=== PATIENT | female | born 1995 | race Two or more races ===

== ENCOUNTER 2018-03-16 22:37 | Emergency (ER) | payer SELFPAY ==
[~2018-03-16] VITALS: Ht 167.6 cm; Wt 56.7 kg
[2018-03-16 22:37] VITALS: BP 130/96
--- NOTE | 2018-03-16 22:37 | NUR ---
ED Nurse Note: Patient ingested unknown amount of meth, unknown route and time. pt was brought in by [facility]. per keven, tahir on the scene. pt is uncoopertive. wont allow staff to take vital signs. pt is talking to herself. per keven pt denies si. will continue to monitor.
--- NOTE | 2018-03-16 22:56 | Emergency Room Report ---
History of Present Illness General Chief Complaint: Overdose Source: Patient, EMS Present Illness HPI Is a 22-year-old female with no past medical history. She called 911 because she said she was not feeling well and someone is out to get her. She smoked methamphetamine today. Denies any fever chills. Denies suicidal thoughts homicidal thought. No nausea no vomiting. No fever or chills. Allergies: Coded Allergies: No Known Allergies (Unverified , 03/16/18) Patient History Past Medical History: see triage record, old chart reviewed Past Surgical History: none Pertinent Family History: none Social History: Reports: drug use - Methamphetamine Last Menstrual Period: unk Now: No Immunizations: other Reviewed Nursing Documentation: PMH: Agreed; PSxH: Agreed Nursing Documentation-PMH Past Medical History Deferred: Pt Cognitively Impaired Past Medical History: Deferred Review of Systems Eye: Denies: eye pain, blurred vision ENT: Denies: ear pain, nose congestion, throat swelling Respiratory: Denies: cough, shortness of breath Cardiovascular: Denies: chest pain, palpitations Gastrointestinal: Denies: abdominal pain, diarrhea, nausea, vomiting Musculoskeletal: Denies: back pain, joint pain Skin: Denies: rash Neurological: Denies: headache, numbness Endocrine: Denies: increased thirst, increased urine Hematologic/Lymphatic: Denies: easy bruising All Other Systems: negative except mentioned in HPI Physical Exam Vital Signs Date Time Temp Pulse Resp B/P (MAP) Pulse Ox O2 Delivery O2 Flow Rate FiO2 03/16/18 22:28 110 16 130/96 100 Room Air vitals with tachycardia Sp02 EP Interpretation: reviewed, normal General Appearance: well appearing, no apparent distress, alert Head: normocephalic, atraumatic Eyes: bilateral eye PERRL, bilateral eye EOMI ENT: hearing grossly normal, normal pharynx Neck: full range of motion, supple, no meningismus Respiratory: chest non-tender, lungs clear, normal breath sounds Cardiovascular #1: regular rate, rhythm, no murmur Gastrointestinal: normal bowel sounds, non tender, no mass, no organomegaly, no bruit, non-distended Musculoskeletal: back normal, gait/station normal, normal range of motion Psychiatric: mood/affect normal Skin: warm/dry Medical Decision Making Homeless Attestation I, The treating physician, Dr Jeremiah Kc, has assessed and agrees that patient is medically stable for discharge to an outpatient disposition. Diagnostic Impression: Primary Impression: Psychosis Qualified Codes: F23 - Brief psychotic disorder Additional Impression: Methamphetamine abuse ER Course Patient presents with drug-induced psychosis. No suicidal thoughts or homicidal thought. No auditory hallucination. We'll observe patient until better. No criteria for 5150. This patient is a chronic risk of self injury due to poor impulse control, limited coping skills, and judgment intermittently impaired by intoxication. I believe that the available clinical evidence to suggest that these characteristics derived primarily from personality disorder and are likely very stable over time. Hospitalization would likely attenuate risk of self-harm only during jail period, without lasting risk reduction. Serious self-harm , while possible, would likely be inadvertent, and because of impulsivity, and foreseeable. For these reasons, I do not believe hospitalization would provide meaningful reduction in risk of self-harm. Last Vital Signs Date Time Temp Pulse Resp B/P (MAP) Pulse Ox O2 Delivery O2 Flow Rate FiO2 03/16/18 22:37 68 16 130/96 100 Room Air Status: improved Disposition: HOME, SELF-CARE Condition: Stable Additional Instructions: Stop using drugs. Follow-up with rehabilitation in 7 days. Return if worse. Jeremiah Kc MD Mar 16, 2018 22:56
[2018-03-17] VITALS: BP 115/75
--- NOTE | 2018-03-17 | NUR ---
ED Nurse Note: Patient is being discharged cleared by ERMD. discharge paper/instruction given to the patient, patient verbalized understanding. patient a/o x4, ambulated out of Ed with steady gait, with all belongings. ID band removed. pt asked sandwich and food was given.
== END 2018-03-17 | disposition home or self-care (01) ==
LOC: EDBD 22:37 → EMR 23:14
DX: F15.159 Other stimulant abuse with stimulant-induced psychotic disorder, unspecified (principal)
CPT/HCPCS: 99282

== ENCOUNTER 2018-05-16 12:55 | Emergency (ER) | payer OTHER ==
[2018-05-16] VITALS (11 sets, daily range): BP systolic 100–121; BP diastolic 59–84
[~2018-05-16] VITALS: Ht 157.5 cm; Wt 56.7 kg
[2018-05-16] MEDS ORDERED: LORazepam Inj 2mg/ml 1ml ONE (13:05)
--- NOTE | 2018-05-16 13:06 | NUR ---
ED Nurse Note: AMBULATED IN TO ER. PER BF, HE CALLED 911 FOR HELP BECAUSE SHE WAS RUNNING AROUND THE STREET. PER TRIAGE NURSE, PT WAS DROPPED OFF BY THE POLICE OFFICERS WITHOUT ENDORSEMENTS. PT ADMITS THAT SHE TOOK COCAINE, CRAK AND METH ABOUT AN HOUR AGO. HEALING SCARS OF CUT NOTED ON THE LEFT ARMS. NO RECENT TRAUMA NOR CUTS. A/OX3, PT IS EXCESSIVELY HAPPY BUT COMBATIVE TO THE STAFFS.
--- NOTE | 2018-05-16 13:10 | NUR ---
ED Nurse Note: ALL BELONGINGS TAKEN OFF FROM PT, STORED IN PSYCH LOCKER #2 WITH BELONGING LIST.
--- NOTE | 2018-05-16 13:15 | NUR ---
ED Nurse Note: VERBAL ORDERL OF LABS WITH ATIVAN 2MG IM RECEIVED.ATIVAN 2MG IM GIVEN ON THE LEFT DELTOID, WITNESSED BY DEJA MITTAL. NO S/S OF TRAUMA.
--- NOTE | 2018-05-16 13:15 | NUR ---
ED Nurse Note: PT IS COMBATIVE AND SCREAMING. RECEIVED VERBAL ORDER TO PLACE ON 4 POINT LEATHER RESTRAINTS. RESTRAINTS APPLIED. NO TRAUMA. CIRCULATION CHECKED.
[2018-05-16] MEDS ORDERED: DiphenhydrAMINE 50mg/ml Inj ONE (13:30)
[2018-05-16] MEDS ORDERED: Haloperidol 5mg/ml Inj ONE (13:30)
--- NOTE | 2018-05-16 13:36 | NUR ---
ED Nurse Note: received order to give Haldol 5mg IM and Benadryl 50mg IM. Administered Haldol 5mg IM right Vastus lateralis muscleand Benadryl 50mg IM left Vastus lateralis muscle, witnessed by DEJA Breaux.
--- NOTE | 2018-05-16 13:52 | Emergency Room Report ---
History of Present Illness General Chief Complaint: Behavioral Complaint Source: Patient, Medical Record (Odilon Osborn MD) Present Illness HPI Patient is a 22-year-old female brought in by boyfriend after increased agitation. Patient reportedly had been recently discharged from a psychiatric facility. She had prior history of bipolar disorder. Medications are unknown. Patient reportedly had been more agitated after leaving from the area where her boyfriend was for approximately 1/2-hour and subsequently becoming more agitated. Patient was noted to have prior history of bipolar but would not state what medication she takes. She was noted to be behaving bizarrely. She apparently had been walking into traffic. (Odilon Osborn MD) Allergies: Coded Allergies: No Known Allergies (Unverified , 03/16/18) Patient History Past Medical History: see triage record Reviewed Nursing Documentation: PMH: Agreed; PSxH: Agreed (Odilon Osborn MD) Nursing Documentation-PMH Past Medical History: No Stated History (Odilon Osborn MD) Review of Systems All Other Systems: negative except mentioned in HPI (Odilon Osborn MD) Physical Exam Vital Signs Date Time Temp Pulse Resp B/P (MAP) Pulse Ox O2 Delivery O2 Flow Rate FiO2 05/16/18 13:00 98.4 108 22 111/84 98 Room Air Sp02 EP Interpretation: reviewed, normal General Appearance: alert/responsive, no apparent distress, GCS 15, non-toxic Head: atraumatic Eyes: normal eye exam, lids + conjunctiva normal, other - pupils dilated 5mm ENT: hearing intact, no angioedema Neck: supple/symm/no masses, no meningismus Respiratory: effort normal, no wheezing, chest symmetrical Cardiovascular: regular rate, rhythm, no edema Cardiovascular #2: 2+ carotid (R), 2+ carotid (L), 2+ dorsalis pedis (R), 2+ dorsalis pedis (L) Gastrointestinal: non-tender, no mass, non-distended, no rebound/guarding, normal bowel sounds Musculoskeletal: gait & station normal, strength & tone normal, normal ROM, non -tender Neurologic: normal inspection, CN II-XII intact, oriented x3, sensory intact, normal speech Psychiatric: other - agitated ambulatory, intermittently yelliing Skin: no rash, well hydrated Lymphatic: normal inspection (Odilon Osborn MD) Medical Decision Making Diagnostic Impression: Primary Impression: Bipolar disorder Additional Impression: Substance abuse ER Course Patient presented for agitation. Differential diagnoses include substance abuse , psychosis, bipolar disorder, depression, malingering. because of complexity of patient's case laboratory testing and imaging studies were ordered.. Patient was noted to be markedly agitated while in the emergency department. She pulled the fire alarm as well as was yelling and screaming. She was noted to have dilated pupils and appears to be somewhat intoxicated with some stimulants. Patient was given IM Ativan as well as Haldol and Benadryl. She was placed in restraints due to agitation. Patient was endorsed to Dr. Gonzalez pending reassessment after medications. (Odilon Osborn MD) ER Course This patient originally presented to Dr. Osborn. I took over care of this patient. She had used multiple illicit drugs and had been acting dangerously and bizarrely and was very agitated and aggressive per report. She had been medicated heavily prior to my care for her. The patient slept during her ED course. This patient presented with drug intoxication. The patient's laboratory workup was noncontributory other than urine drug screen being positive for multiple illicit substances and transaminitis. There is no evidence of trauma or injury on physical examination of this patient. The patient was allowed to sober up in the emergency department and was able to ambulate and articulate desire to go home. The patient was clinically sober at the time of discharge. No acute emergency medical condition is identified. The patient was educated on the dangers of alcohol intoxication and abuse. The patient was given a list of the local rehabilitation clinics. Laboratory Tests Test 05/16/18 14:00 White Blood Count 8.1 K/UL (4.8-10.8) Red Blood Count 4.06 M/UL (4.20-5.40) L Hemoglobin 12.3 G/DL (12.0-16.0) Hematocrit 36.5 % (37.0-47.0) L Mean Corpuscular Volume 90 FL (80-99) Mean Corpuscular Hemoglobin 30.3 PG (27.0-31.0) Mean Corpuscular Hemoglobin Concent 33.7 G/DL (32.0-36.0) Red Cell Distribution Width 12.2 % (11.6-14.8) Platelet Count 303 K/UL (150-450) Mean Platelet Volume 5.7 FL (6.5-10.1) L Neutrophils (%) (Auto) 63.5 % (45.0-75.0) Lymphocytes (%) (Auto) 26.3 % (20.0-45.0) Monocytes (%) (Auto) 7.7 % (1.0-10.0) Eosinophils (%) (Auto) 1.2 % (0.0-3.0) Basophils (%) (Auto) 1.3 % (0.0-2.0) Urine Color Pale yellow Urine Appearance Clear Urine pH 5 (4.5-8.0) Urine Specific Rhodes 1.020 (1.005-1.035) Urine Protein 1+ (NEGATIVE) H Urine Glucose (UA) Negative (NEGATIVE) Urine Ketones Negative (NEGATIVE) Urine Blood 1+ (NEGATIVE) H Urine Nitrite Negative (NEGATIVE) Urine Bilirubin Negative (NEGATIVE) Urine Urobilinogen Normal MG/DL (0.0-1.0) Urine Leukocyte Esterase 2+ (NEGATIVE) H Urine RBC 0-2 /HPF (0 - 2) Urine WBC 2-4 /HPF (0 - 2) Urine Squamous Epithelial Cells Occasional /LPF Urine Bacteria Occasional /HPF (NONE) Urine HCG, Qualitative Negative (NEGATIVE) Sodium Level 141 MMOL/L (136-145) Potassium Level 4.0 MMOL/L (3.5-5.1) Chloride Level 104 MMOL/L (98-107) Carbon Dioxide Level 25 MMOL/L (21-32) Anion Gap 12 mmol/L (5-15) Blood Urea Nitrogen 18 mg/dL (7-18) Creatinine 0.7 MG/DL (0.55-1.30) Estimate Glomerular Filtration Rate > 60 mL/min (>60) Glucose Level 86 MG/DL (74-106) Calcium Level 9.0 MG/DL (8.5-10.1) Total Bilirubin 0.3 MG/DL (0.2-1.0) Aspartate Amino Transferase (AST) 65 U/L (15-37) H Alanine Aminotransferase (ALT) 154 U/L (12-78) H Alkaline Phosphatase 101 U/L (46-116) Troponin I 0.000 ng/mL (0.000-0.056) Total Protein 7.8 G/DL (6.4-8.2) Albumin 4.2 G/DL (3.4-5.0) Globulin 3.6 g/dL Albumin/Globulin Ratio 1.2 (1.0-2.7) Thyroid Stimulating Hormone (TSH) 2.492 uiU/mL (0.358-3.740) Salicylates Level 2.5 ug/mL (2.8-20) L Urine Opiates Screen Negative (NEGATIVE) Acetaminophen Level < 2 MCG/ML (10-30) L Urine Barbiturates Screen Negative (NEGATIVE) Phencyclidine (PCP) Screen Negative (NEGATIVE) Urine Amphetamines Screen Positive (NEGATIVE) H Urine Benzodiazepines Screen Negative (NEGATIVE) Urine Cocaine Screen Positive (NEGATIVE) H Urine Marijuana (THC) Screen Positive (NEGATIVE) H Serum Alcohol < 3 mg/dL (Breana Oleary DO) Last Vital Signs Date Time Temp Pulse Resp B/P (MAP) Pulse Ox O2 Delivery O2 Flow Rate FiO2 05/16/18 13:08 108 22 Room Air 05/16/18 13:06 98.4 111/84 95 (Odilon Osborn MD) Status: improved (Breana Oleary DO) Disposition: HOME, SELF-CARE Condition: Improved dOilon Osborn MD May 16, 2018 13:52 Breana Oleary DO May 16, 2018 21:59
[2018-05-16] MEDS ORDERED: LORazepam Inj 2mg/ml 1ml IM ONE (14:00)
[2018-05-16] MEDS ORDERED: Haloperidol 5mg/ml Inj IM ONE (14:00)
[2018-05-16] MEDS ORDERED: DiphenhydrAMINE 50mg/ml Inj IM ONE (14:00)
--- NOTE | 2018-05-16 14:03 | NUR ---
ED Nurse Note: BLOOD SPECIMENS AND URINE SENT DOWN TO THE LAB.
[2018-05-16 14:19] LABS: APPEARANCE,URINE CLEAR; BASOPHILS % (AUTO) 1.3 % (0.0-2.0); BILIRUBIN, URINE NEGATIVE (NEGATIVE); COLOR,URINE PALE YELLOW; EOSINOPHILS % (AUTO) 1.2 % (0.0-3.0); GLUCOSE, URINE (UA) NEGATIVE (NEGATIVE); HEMATOCRIT 36.5 % (37.0-47.0); HEMOGLOBIN 12.3 G/DL (12.0-16.0); KETONES,URINE NEGATIVE (NEGATIVE); LEUKOCYTE ESTERASE ,URINE 2+ (NEGATIVE); LYMPHOCYTES % (AUTO) 26.3 % (20.0-45.0); MEAN CORPUSCULAR VOLUME 90 FL (80-99); MONOCYTES % (AUTO) 7.7 % (1.0-10.0); NEUTROPHILS % (AUTO) 63.5 % (45.0-75.0); NITRITE,URINE NEGATIVE (NEGATIVE); PH,URINE 5 (4.5-8.0); PLATELET COUNT 303 K/UL (150-450); PROTEIN,URINE 1+ (NEGATIVE); RED BLOOD COUNT 4.06 M/UL (4.20-5.40); RED CELL DISTRIBUTION WIDTH 12.2 % (11.6-14.8); UROBILINOGEN,URINE NORMAL MG/DL (0.0-1.0); WHITE BLOOD COUNT 8.1 K/UL (4.8-10.8)
--- NOTE | 2018-05-16 14:30 | NUR ---
ED Nurse Note: pt sleeping with even and regular resp. pt with restraints removed and remains under close observation.
[2018-05-16 14:32] LABS: ANION GAP 12 mmol/L (5-15); BLOOD UREA NITROGEN 18 mg/dL (7-18); CARBON DIOXIDE 25 MMOL/L (21-32); CHLORIDE 104 MMOL/L (98-107); CREATININE 0.7 MG/DL (0.55-1.30); SODIUM 141 MMOL/L (136-145)
[2018-05-16 14:44] LABS: ALANINE AMINOTRANSFERASE 154 U/L (12-78); ALBUMIN 4.2 G/DL (3.4-5.0); ALBUMIN/GLOBULIN RATIO 1.2 (1.0-2.7); ALKALINE PHOSPHATASE 101 U/L (46-116); ASPARTATE AMINO TRANSFERASE 65 U/L (15-37); BILIRUBIN,TOTAL 0.3 MG/DL (0.2-1.0)
--- NOTE | 2018-05-16 15:01 | NUR ---
ED Nurse Note: pt remains stable and currently sleeping. no s/s of trauma.
--- NOTE | 2018-05-16 16:15 | NUR ---
Patients boyfriend Benja Grady can be contacted at [phone] Patients friend Tam Miguel A can be contacted at [phone]
--- NOTE | 2018-05-16 17:25 | NUR ---
ED Nurse Note: pT IS NOW A/OX4. DENIES SI AND HI. SANDWICH AND JUICE GIVEN
--- NOTE | 2018-05-16 18:33 | NUR ---
ED Nurse Note: PT IS SLEEPING IN GURNEY. NO S/S OF DISTRESS.
--- NOTE | 2018-05-16 18:59 | NUR ---
HAND-OFF: Report given to DEJA Stevens. Pt now moved to room Ortho. No s/s of distress. Pt is a/ox4 at this time, calm. Denies SI and HI.
--- NOTE | 2018-05-16 19:00 | NUR ---
ED Nurse Note: Received report from Serge/RN in Room Ortho. Pt is sleeping quietly at this time, Vital signs stable, no c/o pain or discomfort at this time. Will continue to monitor.
--- NOTE | 2018-05-16 19:35 | NUR ---
ED Nurse Note: No restrain was noted at this time. Pt is resting well.
--- NOTE | 2018-05-16 21:05 | NUR ---
ED Nurse Note: Assited pt walked to Bathroom. Pt is A/O X4, able to ambulated with steady gait. Informed Dr. Oleary that pt is able to walk steadly. Assited pt walked back to her bed. Waiting for discharge paper to be ready.
--- NOTE | 2018-05-16 22:05 | NUR ---
ER DISCHARGE NOTE: Patient is cleared to be discharged per ERMD, pt is aox4, on room air, with stable vital signs. pt was given dc and prescription instructions, pt was able to verbalize understanding, pt id band and iv site removed without complications. pt is able to ambulate with steady gait. At time of discharge, patient's clothing was already on patient. the clothes were appropriate for patient. belongings were taken from locker #2.
== END 2018-05-16 22:00 | disposition home or self-care (01) ==
LOC: EMR 13:30
DX: F31.9 Bipolar disorder, unspecified (principal); F19.10 Other psychoactive substance abuse, uncomplicated
CPT/HCPCS: 36415; 80053; 80307; 80329; 81003; 81025; 84443; 84484; 85025; 96372; 99284; J1200; J1630

== ENCOUNTER 2018-11-27 04:18 | Emergency (ER) | payer OTHER ==
[~2018-11-27] VITALS: Ht 157.5 cm; Wt 61.2 kg
[~2018-11-27 04:18] MED LIST: NITROFURANTOIN100 M2 ORAL
[2018-11-27 04:23] VITALS: BP 130/66
[2018-11-27] MEDS ORDERED: NKM (04:28)
--- NOTE | 2018-11-27 04:30 | NUR ---
ED Nurse Note: Recieved pt on sumanth, awake, alert and oriented x 4, pt here with c/o hearing voices after taking ecstacy 1 hour ago, pt denies homicidal or suicidal ideations, denies visual hallucinations but states hearing voices that are telling her to dance, pt is clean in appearance, denies pqin, no sob or labored breathing ntoed,urine sample collected, will resume care as ordered and closely monitor.
[2018-11-27 04:40] VITALS: BP 130/66
--- NOTE | 2018-11-27 04:42 | NUR ---
ED Nurse Note: Pt spoke with MD, immediately after pt states she wants to leave and walked out of hospital, MD offered care, rest or what pt wants or neds, pt refused stating she will just go home and eloped, pt left ambulating with nad noted.
--- NOTE | 2018-11-27 06:05 | Emergency Room Report ---
History of Present Illness General Chief Complaint: Behavioral Complaint Source: Patient Present Illness HPI 23-year-old female presents ED for evaluation. States that she has been hearing voices since last night. Telling her to "stop" and "go". Denies SI or HI. Admits to ecstasy use and meth use. Patient states she does have a psychiatric history but is not taking any medications at this time. denies alcohol use. Denies chest pain or shortness of breath. No other aggravating relieving factors. denies any other associated symptoms Allergies: Coded Allergies: No Known Allergies (Unverified , 03/16/18) Patient History Past Medical History: psych hx Past Surgical History: none Pertinent Family History: none Social History: Reports: drug use; Denies: smoking, alcohol use Last Menstrual Period: 11/21/18 Now: No Immunizations: UTD Reviewed Nursing Documentation: PMH: Agreed; PSxH: Agreed Nursing Documentation-PMH Past Medical History: No History, Except For Review of Systems All Other Systems: negative except mentioned in HPI Physical Exam Vital Signs Date Time Temp Pulse Resp B/P (MAP) Pulse Ox O2 Delivery O2 Flow Rate FiO2 11/27/18 04:23 98.4 110 14 130/66 (87) 99 Room Air Sp02 EP Interpretation: reviewed, normal General Appearance: no apparent distress, alert, GCS 15, non-toxic, other - anxious Head: normocephalic, atraumatic Eyes: bilateral eye normal inspection, bilateral eye PERRL ENT: hearing grossly normal, normal pharynx, no angioedema, normal voice Neck: full range of motion, supple/symm/no masses Respiratory: chest non-tender, lungs clear, normal breath sounds, speaking full sentences Cardiovascular #1: regular rate, rhythm, no edema Cardiovascular #2: 2+ carotid (R), 2+ carotid (L), 2+ radial (R), 2+ radial (L) , 2+ dorsalis pedis (R), 2+ dorsalis pedis (L) Gastrointestinal: normal bowel sounds, non tender, soft, non-distended, no guarding, no rebound Rectal: deferred Genitourinary: normal inspection, no CVA tenderness Musculoskeletal: back normal, gait/station normal, normal range of motion, non- tender Neurologic: alert, oriented x3, responsive, motor strength/tone normal, sensory intact, speech normal Psychiatric: no suicidal/homicidal ideation, anxious Reflexes: 3+ bicep (R), 3+ bicep (L), 3+ tricep (R), 3+ tricep (L), 3+ knee (R) , 3+ knee (L) Skin: no rash Lymphatic: no adenopathy Medical Decision Making Diagnostic Impression: Primary Impression: Substance abuse ER Course Hospital Course 23 yo F presents with hearing voices, s/p ecstacy use Differential diagnoses include: Psychosis, EtOH, drug abuse Clinical course patient placed on stretcher. Her initial history physical exam reveals female in no acute distress. Patient is cooperative with exam. Answering questions appropriately. Does appear anxious. No evidence of hallucinations during exam. I offered to provide anxiolytic and allow patient to rest here. Vitals stable. Patient declined and states she would rather go home Patient got up and walked out of ED before any further discussion could be had i. I feel this is a highly complex case requiring extensive working including EKG/Rhythm strip, Xray/CT/US, Blood/urine lab work, repeat exams while in ED, and administration of strong opiates/narcotics for pain control, admission to hospital or close patient follow up. Diagnosis -substance abuse patient eloped from ED Last Vital Signs Date Time Temp Pulse Resp B/P (MAP) Pulse Ox O2 Delivery O2 Flow Rate FiO2 11/27/18 04:40 98.4 14 130/66 99 Room Air 11/27/18 04:30 110 Status: unchanged Disposition: ELOPED Condition: Stable Referrals: NON PHYSICIAN (PCP) Anatoliy Moralez MD Nov 27, 2018 06:05
== END 2018-11-27 04:40 | disposition left against medical advice (07) ==
LOC: EMR 04:37
DX: F16.10 Hallucinogen abuse, uncomplicated (principal)
CPT/HCPCS: 99282

== ENCOUNTER 2018-12-03 19:59 | Emergency (ER) | payer OTHER ==
[~2018-12-03] VITALS: Ht 160 cm; Wt 61.2 kg
[~2018-12-03 19:59] MED LIST changes: +NKM
[2018-12-03 20:10] VITALS: BP 130/82
--- NOTE | 2018-12-03 20:10 | NUR ---
ER Nurse Note: Pt brought in by ambulance 829 from home c/o behavioral complaint. Per significant other, pt is acting erratic, hearing voices and walking into traffic. Per significant other, pt took marijuana and estacy. Pt denies SI. supervisor printing shop notifed for sitter. Belongings taken from pt. [employer] and significant other at bedside.
[2018-12-03 20:20] LABS: BILIRUBIN, URINE NEGATIVE (NEGATIVE); GLUCOSE, URINE (UA) NEGATIVE (NEGATIVE); KETONES,URINE 2+ (NEGATIVE); LEUKOCYTE ESTERASE ,URINE 2+ (NEGATIVE); NITRITE,URINE NEGATIVE (NEGATIVE); PH,URINE 5 (4.5-8.0); PROTEIN,URINE 2+ (NEGATIVE); UROBILINOGEN,URINE NORMAL MG/DL (0.0-1.0)
[2018-12-03 20:23] LABS: APPEARANCE,URINE SLIGHTLY CLOUDY; COLOR,URINE YELLOW
[2018-12-03 20:24] LABS: BASOPHILS % (AUTO) 1.3 % (0.0-2.0); EOSINOPHILS % (AUTO) 1.6 % (0.0-3.0); HEMATOCRIT 38.6 % (37.0-47.0); HEMOGLOBIN 13.6 G/DL (12.0-16.0); LYMPHOCYTES % (AUTO) 34.6 % (20.0-45.0); MEAN CORPUSCULAR VOLUME 88 FL (80-99); MONOCYTES % (AUTO) 8.2 % (1.0-10.0); NEUTROPHILS % (AUTO) 54.3 % (45.0-75.0); PLATELET COUNT 326 K/UL (150-450); RED BLOOD COUNT 4.41 M/UL (4.20-5.40); RED CELL DISTRIBUTION WIDTH 10.8 % (11.6-14.8); WHITE BLOOD COUNT 8.4 K/UL (4.8-10.8)
[2018-12-03 20:32] LABS: ANION GAP 10 mmol/L (5-15); BLOOD UREA NITROGEN 11 mg/dL (7-18); CALCIUM 9.5 MG/DL (8.5-10.1); CARBON DIOXIDE 28 MMOL/L (21-32); CHLORIDE 101 MMOL/L (98-107); CREATININE 0.9 MG/DL (0.55-1.30); POTASSIUM 3.2 MMOL/L (3.5-5.1); SODIUM 139 MMOL/L (136-145)
--- NOTE | 2018-12-03 20:36 | NUR ---
ER Nurse Note: Pt is placed on hold by [employer]. Per [employer], [employer] team will not visit becuase pt is under the influence. Pt is resting in room with significant other. All orders completed per ER PA orders. Blood and urine sent to lab; awaiting result. assistive technology trainer will arrange transfer once medically cleared by ERMD.
--- NOTE | 2018-12-03 20:37 | Emergency Room Report ---
History of Present Illness General Chief Complaint: Behavioral Complaint Source: Significant Other Present Illness HPI 23-year-old female with extensive history of methamphetamine and ecstasy use brought in by paramedics after trying to open the car door and run into the traffic. Patient admits to using ecstasy and methamphetamines together, denies all other drug use, tobacco smoke and alcohol intake. At this time patient denies any suicidal homicidal ideation. Denies delusions and hallucinations. Reports that she opened the door to get some air. Denies pain, chest pain, shortness of breath, palpitation or other associated symptoms. Patient is sitting comfortably with stable vital signs. Allergies: Coded Allergies: No Known Allergies (Unverified , 03/16/18) Patient History Past Medical History: see triage record Past Surgical History: unable to obtain Family History: none Social History: drug use - meth, ecstacy Now: No Immunizations: UTD Reviewed Nursing Documentation: PMH: Agreed; PSxH: Agreed Nursing Documentation-PMH Past Medical History: No History, Except For History Of Psychiatric Problem: Yes - BIPOLAR Review of Systems All Other Systems: negative except mentioned in HPI Physical Exam Vital Signs Date Time Temp Pulse Resp B/P (MAP) Pulse Ox O2 Delivery O2 Flow Rate FiO2 12/03/18 19:50 98.8 100 16 130/82 (98) 100 Room Air Sp02 EP Interpretation: reviewed, normal General Appearance: alert/responsive, no apparent distress, GCS 15, non-toxic Head: atraumatic Eyes: PERRL, lids + conjunctiva normal ENT: hearing intact, no angioedema Neck: supple/symm/no masses, no meningismus Respiratory: effort normal, no wheezing, chest symmetrical Cardiovascular: regular rate, rhythm, no edema Cardiovascular #2: 2+ radial (R), 2+ radial (L) Gastrointestinal: non-tender, no mass, non-distended, no rebound/guarding, normal bowel sounds Musculoskeletal: normal inspection, gait & station normal, digits & nails normal Neurologic: normal inspection, CN II-XII intact, oriented x3 Psychiatric: memory normal, no suicidal/homicidal ideation, other - Appears to be under the influence of stimulant Skin: no rash Lymphatic: normal inspection, normal cervical nodes Medical Decision Making PA Attestation All my diagnosis and treatment plans were reviewed ad discussed with my supervising physician Dr. 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 Patient admits to using ecstasy and methamphetamines together, denies all other drug use, tobacco smoke and alcohol intake. At this time patient denies any suicidal homicidal ideation. Denies delusions and hallucinations. Reports that she opened the door to get some air. Denies pain, chest pain, shortness of breath, palpitation or other associated symptoms. Patient is sitting comfortably with stable vital signs. Ddx considered but are not limited to: generalized anxiety disorder, panic attack, depression with psycotic featurs, bipolar disorder, drug overdose Vital signs: are WNL, pt. is afebrile H&PE are most consistent with: Methamphetamine abuse, psychosis secondary to stimulant use, UTI ORDERS: Psychiatric order set ED INTERVENTIONS: NS bolus DISCHARGE: At this time pt. is stable for d/c to home. Will provide printed patient care instructions, and any necessary prescriptions. Care plan and follow up instructions have been discussed with the patient prior to discharge. , Check perception of psychiatric facility Last Vital Signs Date Time Temp Pulse Resp B/P (MAP) Pulse Ox O2 Delivery O2 Flow Rate FiO2 12/03/18 20:10 100 16 Room Air 12/03/18 20:10 98.8 130/82 100 Disposition: HOME, SELF-CARE Condition: Stable Patient Instructions: Psychosis, Stimulant Use Disorder-Methamphetamines, Urinary Tract Infection, [id number] Kirsten Gilbert Dec 03, 2018 20:37
[2018-12-03 20:42] LABS: ALANINE AMINOTRANSFERASE 23 U/L (12-78); ALBUMIN 4.8 G/DL (3.4-5.0); ALBUMIN/GLOBULIN RATIO 1.2 (1.0-2.7); ALKALINE PHOSPHATASE 87 U/L (46-116); ASPARTATE AMINO TRANSFERASE 22 U/L (15-37); BILIRUBIN,TOTAL 1.4 MG/DL (0.2-1.0)
--- NOTE | 2018-12-03 20:43 | NUR ---
ER Nurse Note: Belongings taken and placed in locker 2. Pt calm, sitting in chair. Will continue to montior.
[2018-12-03 20:45] LABS: BILIRUBIN,DIRECT 0.3 MG/DL (0.0-0.3)
--- NOTE | 2018-12-03 20:48 | NUR ---
ER Nurse Note: Pt pulled out IV. Bleeding controled; site clean and bandaged. ER PA notified. Will continue to elif.
[2018-12-03] MEDS ORDERED: NITROFURANTOIN100 M2 ORAL (20:52)
[2018-12-03 21:00] VITALS: BP 134/78
--- NOTE | 2018-12-03 21:00 | NUR ---
ER Nurse Note: Pt not on hold by [employer]. Pt seen, treated, medically cleared for discharge by ERMD. Discharge instuctions and prescriptions given with repeat verbalization by pt. Emphasized to follow up with primay care provider. All orders completed per ERMD orders. Pt a&ox4, VSS, no signs of distress. ID band removed. All questions answered per pt's questions. Pt left with all belongings, left with own transportation.
== END 2018-12-03 21:00 | disposition home or self-care (01) ==
LOC: EDBD 19:59 → EMR 20:42
DX: F15.159 Other stimulant abuse with stimulant-induced psychotic disorder, unspecified (principal); F16.10 Hallucinogen abuse, uncomplicated; N39.0 Urinary tract infection, site not specified; F31.9 Bipolar disorder, unspecified; F17.200 Nicotine dependence, unspecified, uncomplicated
CPT/HCPCS: 36415; 80053; 80307; 81001; 81025; 82248; 85025; 87086; 87181; G0480; G0481; Z7502; 99284